=== PATIENT | female | born 1990 | race Caucasian/White ===

== ENCOUNTER 2016-10-09 20:13 | Emergency (ER) | payer OTHER ==
[2016-10-10 03:03] LABS: BASOPHIL % 0.5 % (0-2); RED CELL DISTRIBUTION WIDTH 13.8 % (11.5-14.5)
[2016-10-10 03:08] LABS: PLATELET COUNT 411 x10^3mcL (130-400)
[2016-10-10 03:14] LABS: CALCIUM 8.2 mg/dL (8.5-10.1); CARBON DIOXIDE 28.6 mmol/L (21-32); CHLORIDE SERUM 103 mmol/L (98-107); CREATININE SERUM 0.8 mg/dL (0.6-1.0); GFR1 > 60 mL/min; GLUCOSE SERUM 105 mg/dL (74-106); POTASSIUM SERUM 4.5 mmol/L (3.5-5.1); SODIUM SERUM 136 mmol/L (136-145)
[2016-10-10 03:17] LABS: UA SPECIFIC GRAVITY 1.025 (1.005-1.035); microscopic required? YES; urine erythrocyte NEGATIVE (NEGATIVE)
[2016-10-10 03:20] LABS: ALBUMIN 3.1 g/dL (3.4-5.0); ALKALINE PHOSPHATASE 68 U/L (46-116); ALT/SGPT 22 U/L (14-59); AMYLASE 53 U/L (25-115); AST/SGOT 19 U/L (15-37); BILIRUBIN TOTAL 0.2 mg/dL (0.20-1.00); LIPASE 161 IU/L (73-393); TOTAL PROTEIN, SERUM 7.3 g/dL (6.4-8.2)
[2016-10-10 04:42] VITALS: BP 106/41
== END 2016-10-10 04:42 | disposition home or self-care (01) ==
LOC: ED 20:13
PROVIDERS: Emergency Medicine
DX: R10.12 Left upper quadrant pain (principal); R10.9 Unspecified abdominal pain; Z87.440 Personal history of urinary (tract) infections
CPT/HCPCS: J1170; Q0162

== ENCOUNTER 2017-01-17 18:52 | Emergency (ER) | payer OTHER ==
[2017-01-17 21:52] VITALS: BP 134/65
[2017-01-19 04:28] LABS: RAPID PLASMA REAGIN Non Reactive (Non Reactive)
== END 2017-01-17 21:53 | disposition home or self-care (01) ==
LOC: ED 18:52
PROVIDERS: Emergency Medicine
DX: N73.0 Acute parametritis and pelvic cellulitis (principal); T83.69XA Infection and inflammatory reaction due to other prosthetic device, implant and graft in genital tract, initial encounter; Z79.899 Other long term (current) drug therapy
CPT/HCPCS: 36415; 87491; 87591; J0696; J1885

== ENCOUNTER 2017-03-15 01:11 | Emergency (ER) | payer OTHER ==
[2017-03-15 03:48] VITALS: BP 128/86
== END 2017-03-15 02:00 | disposition home or self-care (01) ==
LOC: ED 01:11
DX: R07.89 Other chest pain (principal); R11.2 Nausea with vomiting, unspecified; F15.90 Other stimulant use, unspecified, uncomplicated
CPT/HCPCS: J1885; Q0162

== ENCOUNTER 2017-09-22 01:18 | Emergency (ER) | payer OTHER ==
[~2017-09-22] VITALS: Ht 154.9 cm; Wt 82.1 kg
[2017-09-22 01:26] VITALS: Ht 154.9 cm; Wt 82.1 kg
[2017-09-22 02:07] VITALS: BP 130/70
== END 2017-09-22 02:07 | disposition left against medical advice (07) ==
LOC: ED 01:18
DX: Z53.21 Procedure and treatment not carried out due to patient leaving prior to being seen by health care provider (principal)

== ENCOUNTER 2018-03-30 02:15 | Emergency (ER) | payer OTHER ==
[~2018-03-30] VITALS: Ht 154.9 cm; Wt 85.7 kg
[2018-03-30 02:19] VITALS: Ht 154.9 cm; Wt 85.7 kg
[2018-03-30 03:53] LABS: CALCIUM 8.7 mg/dL (8.5-10.1); CARBON DIOXIDE 27.5 mmol/L (21-32); CHLORIDE SERUM 103 mmol/L (98-107); CREATININE SERUM 0.6 mg/dL (0.6-1.0); GFR1 > 60 mL/min; GLUCOSE SERUM 103 mg/dL (74-106); POTASSIUM SERUM 3.9 mmol/L (3.5-5.1); SODIUM SERUM 135 mmol/L (136-145)
[2018-03-30 03:57] LABS: ALBUMIN 3.2 g/dL (3.4-5.0); ALKALINE PHOSPHATASE 55 U/L (46-116); ALT/SGPT 31 U/L (14-59); AST/SGOT 20 U/L (15-37); BILIRUBIN TOTAL 0.2 mg/dL (0.20-1.00); LIPASE 96 IU/L (73-393); TOTAL PROTEIN, SERUM 8.3 g/dL (6.4-8.2)
[2018-03-30 04:16] VITALS: BP 135/89
== END 2018-03-30 04:16 | disposition home or self-care (01) ==
LOC: ED 02:15
PROVIDERS: Emergency Medicine
DX: R10.9 Unspecified abdominal pain (principal); N93.9 Abnormal uterine and vaginal bleeding, unspecified